=== PATIENT | female | born 1950 | race African-American/Black ===

== ENCOUNTER 2018-04-15 16:59 | Emergency (ER) | payer MEDICARE, OTHER ==
[~2018-04-15] VITALS: Ht 157.5 cm; Wt 92.0 kg
[~2018-04-15 16:59] MED LIST: ASPI81 PO; HYDR25TA PO; LOSA25TA21 PO; METF500T6 PO; NAPR375T PO; PRAV40TA4 PO
[2018-04-15] MEDS ORDERED: NORT10 PO (17:07)
[2018-04-15] MEDS ORDERED: DOXY100C PO (17:07)
[2018-04-15 17:14] LABS: GLUCOSE,POINT OF CARE 102 MG/DL (70-110)
[2018-04-15 17:32] LABS: BASOPHILS % (AUTO) 0.6 % (0.0-2.0); EOSINOPHILS % (AUTO) 1.2 % (1.0-6.0); HEMATOCRIT 37.8 % (36-46); HEMOGLOBIN 12.7 g/dL (12.0-16.0); LYMPHOCYTES # (AUTO) 2.4 K/uL (1.0-4.8); LYMPHOCYTES % (AUTO) 41.7 % (22.0-44.0); MEAN CORPUSCULAR HEMOGLOBIN 30.4 pg (26.0-34.0); MEAN CORPUSCULAR HGB CONC 33.5 G/dL (31.0-37.0); MEAN CORPUSCULAR VOLUME 91 fL (80-100); MONOCYTES # (AUTO) 0.3 K/uL (0.1-1.0); MONOCYTES % (AUTO) 5.8 % (2.0-9.0); NEUTROPHILS # (AUTO) 2.9 K/uL (1.8-7.7); NEUTROPHILS % (AUTO) 50.7 % (40.0-70.0); PLATELET COUNT (AUTO) 253 K/uL (150-450); RED BLOOD CELL COUNT(AUTO) 4.16 MIL/uL (4.00-5.20); RED CELL DISTRIBUTION WIDTH 15.6 % (11.5-14.5)
[2018-04-15 17:44] LABS: ANION GAP 5 mmol/L (8-16); CARBON DIOXIDE 29 mmol/L (22-29); CHLORIDE 100 mmol/L (98-107); CREATININE 0.76 mg/dL (0.60-1.30); GLOMERULAR FILTR. RATE CALC > 60 mL/min (>60); GLUCOSE,RANDOM 94 mg/dL (70-110); POTASSIUM 3.7 mmol/L (3.5-5.1); SODIUM SERUM 134 mmol/L (136-145); UREA NITROGEN, BLOOD 12 mg/dL (7-18)
[2018-04-15 17:51] LABS: ALANINE AMINOTRANSFERASE 23 U/L (12-78); ALBUMIN 3.3 g/dL (3.4-5.0); ALKALINE PHOSPHATASE 66 U/L (46-116); ASPARTATE AMINOTRANSFERASE 20 U/L (15-37); BILIRUBIN,TOTAL 0.2 mg/dL (0.1-1.0); LIPASE 154 U/L (73-393); TOTAL PROTEIN, SERUM 7.3 g/dL (6.4-8.2)
[2018-04-15 18:17] LABS: APPEARANCE,URINE CLEAR (CLEAR); BILIRUBIN,URINE NEGATIVE (NEGATIVE); GLUCOSE, URINE (UA) NEGATIVE (NEGATIVE); KETONES,URINE NEGATIVE (NEGATIVE); LEUKOCYTE ESTERASE ,URINE TRACE (NEGATIVE); NITRATE,URINE NEGATIVE (NEGATIVE); OCCULT BLOOD,URINE NEGATIVE (NEGATIVE); PH,URINE 6.5 (5.0-8.0); PROTEIN,URINE NEGATIVE (NEGATIVE); UROBILINOGEN,URINE 0.2 mg/dL (<=1.0)
[2018-04-15 18:36] LABS: RBC,URINE None Seen /HPF (0-2)
[2018-04-15 18:37] LABS: BACTERIA,URINE None Seen /HPF (None Seen); SQUAMOUS EPITHELIAL CELL,UR Rare /LPF (None Seen)
[2018-04-15] MEDS ORDERED: ONDANSETRON HCL 4 MG TABLET PO ONE (18:45)
[2018-04-15] MEDS ORDERED: KETOROLAC TROMETHAMINE 30 MG/ML VIAL IM ONE (18:45)
[2018-04-15] MEDS ORDERED: METF850T2 PO (18:53)
[2018-04-15 20:35] VITALS: BP 138/66
== END 2018-04-15 20:42 | disposition home or self-care (01) ==
LOC: EMS 17:00
DX: M54.42 Lumbago with sciatica, left side (principal); R10.13 Epigastric pain; R11.2 Nausea with vomiting, unspecified; E11.9 Type 2 diabetes mellitus without complications; E78.00 Pure hypercholesterolemia, unspecified
CPT/HCPCS: 36415; 73503; 80053; 81001; 82962; 83690; 84484; 85025; 93005; 96372; 99285; J1885; Q0162

== ENCOUNTER 2018-09-07 19:10 | Emergency (ER) | payer MEDICARE, OTHER ==
[~2018-09-07] VITALS: Ht 170.2 cm; Wt 94.1 kg
[~2018-09-07 19:10] MED LIST changes: -ASPI81 PO; +LOSA25TA16 PO; -LOSA25TA21 PO; +METF-445 PO; -METF500T6 PO; -NAPR375T PO; +NORT10 PO; -PRAV40TA4 PO
[2018-09-07 19:22] LABS: GLUCOSE,POINT OF CARE 147 MG/DL (70-110)
[2018-09-07] MEDS ORDERED: IBUP-2070 PO (19:27)
[2018-09-07] MEDS ORDERED: ATOR40TA28 PO (19:27)
[2018-09-07] MEDS ORDERED: ACETAMINOPHEN 500 MG TABLET PO ONE (20:15)
[2018-09-07] MEDS ORDERED: ONDANSETRON HCL 4 MG/2 ML VIAL IVP ONE (20:15)
[2018-09-07] MEDS ORDERED: SODIUM CHLORIDE 0.9% 1,000 ML IV ONE (20:15)
[2018-09-07] MEDS ORDERED: MECLIZINE HCL 25 MG TABLET PO ONE (20:15)
[2018-09-07 20:25] LABS: APPEARANCE,URINE CLEAR (CLEAR); BILIRUBIN,URINE NEGATIVE (NEGATIVE); GLUCOSE, URINE (UA) NEGATIVE (NEGATIVE); KETONES,URINE NEGATIVE (NEGATIVE); LEUKOCYTE ESTERASE ,URINE NEGATIVE (NEGATIVE); NITRATE,URINE NEGATIVE (NEGATIVE); OCCULT BLOOD,URINE NEGATIVE (NEGATIVE); PH,URINE 6.5 (5.0-8.0); PROTEIN,URINE NEGATIVE (NEGATIVE); UROBILINOGEN,URINE 0.2 mg/dL (<=1.0)
[2018-09-07 20:30] LABS: BASOPHILS % (AUTO) 0.8 % (0.0-2.0); HEMATOCRIT 37.9 % (36-46); HEMOGLOBIN 12.8 g/dL (12.0-16.0); LYMPHOCYTES # (AUTO) 2.1 K/uL (1.0-4.8); MEAN CORPUSCULAR HEMOGLOBIN 30.5 pg (26.0-34.0); MEAN CORPUSCULAR HGB CONC 33.7 G/dL (31.0-37.0); MEAN CORPUSCULAR VOLUME 91 fL (80-100); MONOCYTES # (AUTO) 0.3 K/uL (0.1-1.0); MONOCYTES % (AUTO) 6.4 % (2.0-9.0); NEUTROPHILS # (AUTO) 2.7 K/uL (1.8-7.7); NEUTROPHILS % (AUTO) 50.8 % (40.0-70.0); PLATELET COUNT (AUTO) 241 K/uL (150-450); RED BLOOD CELL COUNT(AUTO) 4.18 MIL/uL (4.00-5.20); RED CELL DISTRIBUTION WIDTH 14.7 % (11.5-14.5)
[2018-09-07 20:40] LABS: ANION GAP 7 mmol/L (8-16); CARBON DIOXIDE 29 mmol/L (22-29); CHLORIDE 102 mmol/L (98-107); CREATININE 0.72 mg/dL (0.60-1.30); GLOMERULAR FILTR. RATE CALC > 60 mL/min (>60); GLUCOSE,RANDOM 115 mg/dL (70-110); POTASSIUM 3.4 mmol/L (3.5-5.1); SODIUM SERUM 138 mmol/L (136-145); UREA NITROGEN, BLOOD 11 mg/dL (7-18)
[2018-09-07 20:46] LABS: ALANINE AMINOTRANSFERASE 25 U/L (12-78); ALKALINE PHOSPHATASE 79 U/L (46-116); ASPARTATE AMINOTRANSFERASE 16 U/L (15-37); BILIRUBIN,TOTAL 0.3 mg/dL (0.1-1.0); LIPASE 109 U/L (73-393); TOTAL PROTEIN, SERUM 7.1 g/dL (6.4-8.2)
[2018-09-07 20:59] LABS: BACTERIA,URINE None Seen /HPF (None Seen); RBC,URINE 0-2 /HPF (0-2); SQUAMOUS EPITHELIAL CELL,UR Few /LPF (None Seen); WBC,URINE 0-2 /HPF (0-5)
[2018-09-07 21:04] LABS: LACTIC ACID 1.8 mmol/L (0.4-2.0)
[2018-09-07 21:47] VITALS: BP 149/85
== END 2018-09-07 21:58 | disposition home or self-care (01) ==
LOC: EMS 19:11
DX: R42 Dizziness and giddiness (principal); K29.70 Gastritis, unspecified, without bleeding; F41.9 Anxiety disorder, unspecified; R51 Headache; E11.9 Type 2 diabetes mellitus without complications; E78.00 Pure hypercholesterolemia, unspecified; I10 Essential (primary) hypertension; M19.90 Unspecified osteoarthritis, unspecified site; Z79.84 Long term (current) use of oral hypoglycemic drugs
CPT/HCPCS: 36415; 70450; 80053; 81001; 82962; 83605; 83690; 84484; 85025; 93005; 96361; 96374; 99285; J2405; J7030

== ENCOUNTER 2019-05-09 20:00 | Emergency (ER) | payer MEDICARE, OTHER ==
[~2019-05-09] VITALS: Ht 154.9 cm; Wt 93.2 kg
[~2019-05-09 20:00] MED LIST changes: +ATOR40TA28 PO; +IBUP-2070 PO; -LOSA25TA16 PO; +LOSA25TA41 PO; -NORT10 PO
[2019-05-09] MEDS ORDERED: RANI150T7 PO (20:28)
[2019-05-09 20:35] LABS: GLUCOSE,POINT OF CARE 294 MG/DL (70-110)
[2019-05-09] MEDS ORDERED: CARISOPRODOL 350 MG TABLET PO ONE (22:45)
[2019-05-09] MEDS ORDERED: MethylPREDNISolone SOD SUCC 125 MG/2 ML VIAL IVP ONE (22:45)
[2019-05-09] MEDS ORDERED: SODIUM CHLORIDE 0.9% 1,000 ML IV ONE (22:45)
[2019-05-09] MEDS ORDERED: IPRATROPIUM BROMIDE 0.5 MG/2.5 ML NEB SOLUTION NEB ONE (22:45)
[2019-05-09] MEDS ORDERED: KETOROLAC TROMETHAMINE 30 MG/ML VIAL IVP ONE (22:45)
[2019-05-09] MEDS ORDERED: ONDANSETRON HCL 4 MG/2 ML VIAL IVP ONE (22:45)
[2019-05-09] MEDS ORDERED: ALBUTEROL SULFATE 2.5 MG/0.5 ML NEB SOLUTION NEB ONE (22:45)
[2019-05-09 23:58] VITALS: BP 141/73
== END 2019-05-10 00:45 | disposition home or self-care (01) ==
LOC: EMS 20:03
DX: G44.209 Tension-type headache, unspecified, not intractable (principal); I10 Essential (primary) hypertension; E78.00 Pure hypercholesterolemia, unspecified; E11.9 Type 2 diabetes mellitus without complications; J45.909 Unspecified asthma, uncomplicated; Z79.84 Long term (current) use of oral hypoglycemic drugs
CPT/HCPCS: 82962; 94640; 96374; 96375; 99283; J1885; J2405; J2930; J7030

== ENCOUNTER 2019-07-14 18:04 | Emergency (ER) | payer MEDICARE, OTHER ==
[~2019-07-14] VITALS: Ht 154.9 cm; Wt 93.0 kg
[~2019-07-14 18:04] MED LIST changes: +RANI150T7 PO
[2019-07-14 18:26] LABS: GLUCOSE,POINT OF CARE 103 MG/DL (70-110)
[2019-07-14 21:40] LABS: APPEARANCE,URINE CLEAR (CLEAR); BILIRUBIN,URINE NEGATIVE (NEGATIVE); GLUCOSE, URINE (UA) NEGATIVE (NEGATIVE); KETONES,URINE NEGATIVE (NEGATIVE); LEUKOCYTE ESTERASE ,URINE TRACE (NEGATIVE); NITRATE,URINE NEGATIVE (NEGATIVE); OCCULT BLOOD,URINE NEGATIVE (NEGATIVE); PROTEIN,URINE NEGATIVE (NEGATIVE); UROBILINOGEN,URINE 0.2 mg/dL (<=1.0)
[2019-07-14 21:55] LABS: BACTERIA,URINE None Seen /HPF (None Seen); RBC,URINE None Seen /HPF (0-2); WBC,URINE 0-2 /HPF (0-5)
[2019-07-14 21:56] LABS: SQUAMOUS EPITHELIAL CELL,UR Rare /LPF (None Seen)
[2019-07-14] MEDS ORDERED: AMOX TR/POT CLAV 875 MG/125 MG TABLET PO ONE (22:00)
[2019-07-14] MEDS ORDERED: HYDROCODONE/ACETAMINOPHEN 5-325 MG TABLET PO ONE (22:00)
[2019-07-14 22:28] VITALS: BP 148/88
== END 2019-07-14 22:29 | disposition home or self-care (01) ==
LOC: EMS 18:07
DX: J02.9 Acute pharyngitis, unspecified (principal); R35.0 Frequency of micturition; R30.0 Dysuria; R10.30 Lower abdominal pain, unspecified; R30.9 Painful micturition, unspecified; E78.00 Pure hypercholesterolemia, unspecified; I10 Essential (primary) hypertension; J45.909 Unspecified asthma, uncomplicated; M19.90 Unspecified osteoarthritis, unspecified site; Z79.899 Other long term (current) drug therapy
CPT/HCPCS: 87430

== ENCOUNTER 2022-04-10 18:18 | Emergency (ER) | payer MEDICARE, OTHER ==
[~2022-04-10] VITALS: Ht 160 cm; Wt 85.0 kg
[~2022-04-10 18:18] MED LIST changes: +HYDR-4870 PO; -HYDR25TA PO; +LOSA-381 PO; -LOSA25TA41 PO
[2022-04-10 18:57] LABS: BASOPHILS % (AUTO) 1.1 % (0.0-2.0); EOSINOPHILS % (AUTO) 1.2 % (1.0-6.0); HEMATOCRIT 36.3 % (36-46); HEMOGLOBIN 12.2 g/dL (12.0-16.0); LYMPHOCYTES # (AUTO) 1.9 K/uL (1.0-4.8); LYMPHOCYTES % (AUTO) 33.2 % (22.0-44.0); MEAN CORPUSCULAR HEMOGLOBIN 29.7 pg (26.0-34.0); MEAN CORPUSCULAR HGB CONC 33.5 G/dL (31.0-37.0); MEAN CORPUSCULAR VOLUME 89 fL (80-100); MONOCYTES # (AUTO) 0.4 K/uL (0.1-1.0); MONOCYTES % (AUTO) 6.5 % (2.0-9.0); NEUTROPHILS # (AUTO) 3.4 K/uL (1.8-7.7); PLATELET COUNT (AUTO) 314 K/uL (150-450); RED CELL DISTRIBUTION WIDTH 15.3 % (11.5-14.5)
[2022-04-10 19:09] LABS: ANION GAP 10 mmol/L (8-16); CALCIUM, TOTAL 9.5 mg/dL (8.8-10.5); CARBON DIOXIDE 27 mmol/L (22-29); CHLORIDE 101 mmol/L (98-107); GLUCOSE,RANDOM 141 mg/dL (70-110); POTASSIUM 3.3 mmol/L (3.5-5.1); SODIUM SERUM 138 mmol/L (136-145); UREA NITROGEN, BLOOD 15 mg/dL (7-18)
[2022-04-10 19:14] LABS: GLOMERULAR FILTR. RATE CALC > 60 mL/min (>60)
[2022-04-10 19:16] LABS: B-TYPE NATRIURETIC PEPTIDE 33 pg/mL (0-100)
[2022-04-10 19:20] LABS: ALANINE AMINOTRANSFERASE 10 U/L (12-78); ALBUMIN 3.4 g/dL (3.4-5.0); ALKALINE PHOSPHATASE 85 U/L (46-116); ASPARTATE AMINOTRANSFERASE 13 U/L (15-37); BILIRUBIN,TOTAL 0.2 mg/dL (0.1-1.0); TOTAL PROTEIN, SERUM 7.5 g/dL (6.4-8.2)
[2022-04-10] MEDS ORDERED: PB/HYOSCY/ATR/SCOP/LIDO/MAALOX 55 ML BOTTLE PO ONE (19:30)
[2022-04-10 20:26] LABS: COVID AG,FIA SOURCE NASAL SWAB
[2022-04-10] MEDS ORDERED: POTASSIUM CHLORIDE 20 MEQ ER TABLET PO ONE (20:30)
[2022-04-10] MEDS ORDERED: PANT-31 PO (22:01)
[2022-04-10] MEDS ORDERED: ACETAMINOPHEN 500 MG TABLET PO ONE (22:15)
[2022-04-10 22:38] VITALS: BP 141/70
== END 2022-04-10 22:40 | disposition home or self-care (01) ==
LOC: EMS 18:20
DX: K21.9 Gastro-esophageal reflux disease without esophagitis (principal); M19.90 Unspecified osteoarthritis, unspecified site; J45.909 Unspecified asthma, uncomplicated; E11.9 Type 2 diabetes mellitus without complications; E78.00 Pure hypercholesterolemia, unspecified; I10 Essential (primary) hypertension; Z86.69 Personal history of other diseases of the nervous system and sense organs; Z87.19 Personal history of other diseases of the digestive system; Z20.822 Contact with and (suspected) exposure to COVID-19
CPT/HCPCS: 71045; 80053; 82962; 83880; 84484; 85025; 93005; 99285; 36415-L1; 36415-TC

== ENCOUNTER 2022-12-22 15:09 | Inpatient (IN) | payer MEDICARE, OTHER ==
[~2022-12-22] VITALS: Ht 157.5 cm; Wt 89.0 kg
[~2022-12-22 15:09] MED LIST changes: -HYDR-4870 PO; +HYDR25TA2 PO; +IBUP-1492 PO; -IBUP-2070 PO; +PANT-31 PO
[2022-12-22] MEDS ORDERED: NITROGLYCERIN 0.4 MG SUBLINGUAL TABLET #25 SL ONE (17:00)
[2022-12-22] MEDS ORDERED: ONDANSETRON HCL 4 MG/2 ML VIAL IVP ONE (17:00)
[2022-12-22] MEDS ORDERED: ASPIRIN 325 MG TABLET PO ONE (17:00)
[2022-12-22 17:28] LABS: BASOPHILS % (AUTO) 1.2 % (0.0-2.0); EOSINOPHILS % (AUTO) 2.4 % (1.0-6.0); HEMATOCRIT 36.9 % (36-46); HEMOGLOBIN 11.9 g/dL (12.0-16.0); LYMPHOCYTES # (AUTO) 2.1 K/uL (1.0-4.8); MEAN CORPUSCULAR HEMOGLOBIN 29.4 pg (26.0-34.0); MEAN CORPUSCULAR HGB CONC 32.3 G/dL (31.0-37.0); MEAN CORPUSCULAR VOLUME 91 fL (80-100); MONOCYTES # (AUTO) 0.4 K/uL (0.1-1.0); MONOCYTES % (AUTO) 6.8 % (2.0-9.0); NEUTROPHILS # (AUTO) 3.4 K/uL (1.8-7.7); NEUTROPHILS % (AUTO) 55.6 % (40.0-70.0); PLATELET COUNT (AUTO) 254 K/uL (150-450); RED BLOOD CELL COUNT(AUTO) 4.06 MIL/uL (4.00-5.20)
[2022-12-22 17:31] LABS: GLUCOMETER DEV NAME(LOC) ERT.5; GLUCOSE,POINT OF CARE 135 MG/DL (70-110)
[2022-12-22 17:38] LABS: ANION GAP 10 mmol/L (8-16); CALCIUM, TOTAL 9.1 mg/dL (8.8-10.5); CARBON DIOXIDE 29 mmol/L (22-29); CHLORIDE 104 mmol/L (98-107); CREATININE 0.91 mg/dL (0.60-1.30); GLOMERULAR FILTR. RATE CALC > 60 mL/min (>60); GLUCOSE,RANDOM 95 mg/dL (70-110); SODIUM SERUM 143 mmol/L (136-145); UREA NITROGEN, BLOOD 22 mg/dL (7-18)
[2022-12-22 17:48] LABS: ALBUMIN 3.2 g/dL (3.4-5.0); ALKALINE PHOSPHATASE 79 U/L (46-116); ASPARTATE AMINOTRANSFERASE 16 U/L (15-37); BILIRUBIN,TOTAL 0.1 mg/dL (0.1-1.0); LIPASE 126 U/L (73-393); TOTAL PROTEIN, SERUM 7.4 g/dL (6.4-8.2)
[2022-12-22 17:53] LABS: B-TYPE NATRIURETIC PEPTIDE 86 pg/mL (0-100)
[2022-12-22 17:59] LABS: ALANINE AMINOTRANSFERASE 18 U/L (12-78); LACTIC ACID 2.4 mmol/L (0.4-2.0)
[2022-12-22 18:23] LABS: APPEARANCE,URINE CLEAR (CLEAR); BILIRUBIN,URINE NEGATIVE (NEGATIVE); GLUCOSE, URINE (UA) NEGATIVE (NEGATIVE); KETONES,URINE NEGATIVE (NEGATIVE); LEUKOCYTE ESTERASE ,URINE MODERATE (NEGATIVE); NITRATE,URINE NEGATIVE (NEGATIVE); OCCULT BLOOD,URINE NEGATIVE (NEGATIVE); PROTEIN,URINE NEGATIVE (NEGATIVE); SPECIFIC GRAVITIY, URINE 1.007 (1.003-1.030); UROBILINOGEN,URINE <=1.0 mg/dL (<=1.0)
[2022-12-22 18:28] LABS: COVID AG,FIA SOURCE NASOPHARYNGEAL
[2022-12-22 18:45] LABS: RBC,URINE None Seen /HPF (0-2)
[2022-12-22 18:46] LABS: BACTERIA,URINE None Seen /HPF (None Seen)
[2022-12-22 18:54] LABS: INFLUENZA TYPE A NEGATIVE FOR TYPE A (NEGATIVE); INFLUENZA TYPE B NEGATIVE FOR TYPE B (NEGATIVE)
[2022-12-22] MEDS ORDERED: NITROGLYCERIN 2% (1 GM=INCH) OINTMENT PACKET TP ONE (19:00)
[2022-12-22] MEDS ORDERED: MORPHINE SULFATE 4 MG/ML SYRINGE IVP ONE (19:00)
[2022-12-22] MEDS ORDERED: ACETAMINOPHEN 500 MG TABLET PO ONE (19:00)
[2022-12-22] MEDS ORDERED: ACETAMINOPHEN 325 MG TABLET PO PRN (19:15)
[2022-12-22] MEDS ORDERED: MORPHINE SULFATE 2 MG/ML SYRINGE IVP PRN (19:15)
[2022-12-22] MEDS ORDERED: ONDANSETRON HCL 4 MG/2 ML VIAL IVP PRN (19:15)
[2022-12-22] MEDS ORDERED: IOHEXOL 350 MG/ML 100 ML VIAL ONE (19:17)
[2022-12-22] MEDS ORDERED: SODIUM CHLORIDE 0.9% 100 ML ONE (19:17)
[2022-12-22] MEDS: DOCUSATE SODIUM 100 MG CAPSULE PO SCH (21:33)
[2022-12-22] MEDS ORDERED: DEXTROSE 50%-WATER 25 GM/50 ML SYRINGE IVP PRN (22:30)
[2022-12-23] MEDS: CefTRIAXone 1 GM/DEXTROSE 50 ML IV SCH (00:09)
[2022-12-23] MEDS: INSULIN GLARGINE,HUM.REC.ANLOG 100 UNITS/ML SQ SCH ×2 (00:09→20:47)
[2022-12-23] MEDS: METOPROLOL TARTRATE 25 MG TABLET PO SCH ×3 (00:09→20:44)
[2022-12-23] MEDS: ATORVASTATIN CALCIUM 40 MG TABLET PO SCH ×2 (00:09→20:45)
[2022-12-23] MEDS: AZITHROMYCIN 500 MG/NS 250 ML IV SCH (00:10)
[2022-12-23] MEDS ORDERED: SODIUM CHLORIDE 0.9% 100 ML ONE (02:26)
[2022-12-23] MEDS ORDERED: IOHEXOL 350 MG/ML 100 ML VIAL ONE ×2 (02:26→02:27)
[2022-12-23 02:59] LABS: CHOL/HDL RATIO 4.3 (3.9-5.7)
[2022-12-23 03:03] LABS: HEMOGLOBIN A1C 7.5 % (3.8-5.6)
[2022-12-23 06:02] LABS: HEMATOCRIT 37.5 % (36-46); HEMOGLOBIN 12.6 g/dL (12.0-16.0); RED BLOOD CELL COUNT(AUTO) 4.13 MIL/uL (4.00-5.20)
[2022-12-23 06:03] LABS: BASOPHILS % (AUTO) 1.2 % (0.0-2.0); EOSINOPHILS % (AUTO) 3.1 % (1.0-6.0); LYMPHOCYTES # (AUTO) 2.1 K/uL (1.0-4.8); MEAN CORPUSCULAR HEMOGLOBIN 30.6 pg (26.0-34.0); MEAN CORPUSCULAR HGB CONC 33.7 G/dL (31.0-37.0); MEAN CORPUSCULAR VOLUME 91 fL (80-100); MONOCYTES # (AUTO) 0.4 K/uL (0.1-1.0); MONOCYTES % (AUTO) 8.2 % (2.0-9.0); NEUTROPHILS # (AUTO) 2.6 K/uL (1.8-7.7); NEUTROPHILS % (AUTO) 48.5 % (40.0-70.0); PLATELET COUNT (AUTO) 262 K/uL (150-450)
[2022-12-23 06:10] LABS: ANION GAP 9 mmol/L (8-16); CALCIUM, TOTAL 8.9 mg/dL (8.8-10.5); CARBON DIOXIDE 28 mmol/L (22-29); CHLORIDE 102 mmol/L (98-107); CREATININE 0.98 mg/dL (0.60-1.30); GLOMERULAR FILTR. RATE CALC > 60 mL/min (>60); GLUCOSE,RANDOM 133 mg/dL (70-110); POTASSIUM 3.7 mmol/L (3.5-5.1); SODIUM SERUM 139 mmol/L (136-145); UREA NITROGEN, BLOOD 18 mg/dL (7-18)
[2022-12-23 06:31] LABS: PLATELET MORPHOLOGY COMMENT GIANT PLTS PRESENT
[2022-12-23] MEDS: ASPIRIN 81 MG CHEWABLE TABLET PO SCH (08:28)
[2022-12-23] MEDS: DOCUSATE SODIUM 100 MG CAPSULE PO SCH ×2 (08:28→20:44)
[2022-12-23] MEDS: INSULIN LISPRO 100 UNITS/ML SQ PRN ×3 (09:08→20:47)
[2022-12-23 09:17] LABS: GLUCOSE,POINT OF CARE 173 MG/DL (70-110)
[2022-12-23 12:00] VITALS: BP 152/76
[2022-12-23] MEDS ORDERED: PNEUMOCOCCAL VACCINE POLYVALENT 0.5 ML VIAL [PPSV23] IM. ONE (12:45)
[2022-12-23] MEDS ORDERED: INFLUENZA VIRUS VACCINE QVS 2022-23 (6MO+)/PF 60 MCG/0.5 ML SYRINGE IM. ONE (12:45)
[2022-12-23 16:00] VITALS: BP 154/66
[2022-12-23 18:57] LABS: GLUCOMETER DEV NAME(LOC) 5N.1C; GLUCOSE,POINT OF CARE 102 MG/DL (70-110)
[2022-12-23 20:00] VITALS: BP 152/71
[2022-12-23 23:06] LABS: GLUCOMETER DEV NAME(LOC) 5S.1B; GLUCOSE,POINT OF CARE 187 MG/DL (70-110)
[2022-12-23] MEDS ORDERED: SODIUM CHLORIDE 0.9% 500 ML IV ONE (23:47)
[2022-12-24] VITALS (8 sets, daily range): BP systolic 110–147; BP diastolic 46–80
[2022-12-24] MEDS: CefTRIAXone 1 GM/DEXTROSE 50 ML IV SCH ×2 (00:09→22:42)
[2022-12-24] MEDS: AZITHROMYCIN 500 MG/NS 250 ML IV SCH ×2 (00:44→23:41)
[2022-12-24 05:31] LABS: GLUCOMETER DEV NAME(LOC) 5S.2B; GLUCOSE,POINT OF CARE 223 MG/DL (70-110)
[2022-12-24 07:39] LABS: EOSINOPHILS % (AUTO) 5.6 % (1.0-6.0); HEMATOCRIT 36.2 % (36-46); HEMOGLOBIN 12.1 g/dL (12.0-16.0); MEAN CORPUSCULAR HEMOGLOBIN 30.6 pg (26.0-34.0); MEAN CORPUSCULAR HGB CONC 33.3 G/dL (31.0-37.0); MEAN CORPUSCULAR VOLUME 92 fL (80-100); MONOCYTES # (AUTO) 0.4 K/uL (0.1-1.0); MONOCYTES % (AUTO) 7.9 % (2.0-9.0); NEUTROPHILS # (AUTO) 2.2 K/uL (1.8-7.7); NEUTROPHILS % (AUTO) 44.5 % (40.0-70.0); PLATELET COUNT (AUTO) 221 K/uL (150-450); RED BLOOD CELL COUNT(AUTO) 3.94 MIL/uL (4.00-5.20); RED CELL DISTRIBUTION WIDTH 14.8 % (11.5-14.5)
[2022-12-24 07:54] LABS: ANION GAP 8 mmol/L (8-16); CALCIUM, TOTAL 8.8 mg/dL (8.8-10.5); CARBON DIOXIDE 27 mmol/L (22-29); CHLORIDE 106 mmol/L (98-107); CREATININE 1.02 mg/dL (0.60-1.30); GLOMERULAR FILTR. RATE CALC > 60 mL/min (>60); GLUCOSE,RANDOM 104 mg/dL (70-110); POTASSIUM 4.2 mmol/L (3.5-5.1); SODIUM SERUM 141 mmol/L (136-145); UREA NITROGEN, BLOOD 18 mg/dL (7-18)
[2022-12-24] MEDS: ASPIRIN 81 MG CHEWABLE TABLET PO SCH (08:00)
[2022-12-24 08:01] LABS: CHOL/HDL RATIO 3.6 (3.9-5.7)
[2022-12-24] MEDS: METOPROLOL TARTRATE 25 MG TABLET PO SCH ×2 (08:46→21:15)
[2022-12-24] MEDS: DOCUSATE SODIUM 100 MG CAPSULE PO SCH ×2 (08:46→21:15)
[2022-12-24 08:51] LABS: GLUCOMETER DEV NAME(LOC) 5S.2B; GLUCOSE,POINT OF CARE 97 MG/DL (70-110)
[2022-12-24] MEDS ORDERED: REGADENOSON 0.4 MG/5 ML PF SYRINGE IVP ONE (11:30)
[2022-12-24] MEDS ORDERED: SESTAMIBI TC99M/UD ISOTOPE 1 EA INJ INJ ONE ×2 (13:00→15:10)
[2022-12-24] MEDS ORDERED: AMINOPHYLLINE 25 MG/ML 10 ML VIAL IVP PRN (13:30)
[2022-12-24] MEDS: HEPARIN SODIUM,PORCINE 5,000 UNITS/ML VIAL SQ SCH ×2 (17:50→23:41)
[2022-12-24] MEDS: PANTOPRAZOLE SODIUM 40 MG DR TABLET PO SCH (17:50)
[2022-12-24] MEDS: INSULIN LISPRO 100 UNITS/ML SQ PRN ×2 (18:27→21:25)
[2022-12-24] MEDS ORDERED: ATORVASTATIN CALCIUM 40 MG TABLET PO SCH (21:00)
[2022-12-24] MEDS: INSULIN GLARGINE,HUM.REC.ANLOG 100 UNITS/ML SQ SCH (21:25)
[2022-12-25 00:18] VITALS: BP 110/55
[2022-12-25 03:21] LABS: GLUCOMETER DEV NAME(LOC) 5S.2B; GLUCOSE,POINT OF CARE 224 MG/DL (70-110)
[2022-12-25 03:21] LABS: GLUCOMETER DEV NAME(LOC) 5S.2B; GLUCOSE,POINT OF CARE 251 MG/DL (70-110)
[2022-12-25 03:21] LABS: GLUCOMETER DEV NAME(LOC) 5S.2B; GLUCOSE,POINT OF CARE 192 MG/DL (70-110)
[2022-12-25 03:22] LABS: GLUCOMETER DEV NAME(LOC) 5S.2B; GLUCOSE,POINT OF CARE 215 MG/DL (70-110)
[2022-12-25 03:22] LABS: GLUCOMETER DEV NAME(LOC) 5S.2B; GLUCOSE,POINT OF CARE 44 MG/DL (70-110)
[2022-12-25 06:01] VITALS: BP 123/63
[2022-12-25 06:56] LABS: BASOPHILS % (AUTO) 0.9 % (0.0-2.0); EOSINOPHILS % (AUTO) 4.7 % (1.0-6.0); HEMATOCRIT 34.8 % (36-46); HEMOGLOBIN 11.7 g/dL (12.0-16.0); LYMPHOCYTES # (AUTO) 1.7 K/uL (1.0-4.8); LYMPHOCYTES % (AUTO) 42.1 % (22.0-44.0); MEAN CORPUSCULAR HEMOGLOBIN 30.5 pg (26.0-34.0); MEAN CORPUSCULAR HGB CONC 33.6 G/dL (31.0-37.0); MEAN CORPUSCULAR VOLUME 91 fL (80-100); MONOCYTES # (AUTO) 0.3 K/uL (0.1-1.0); MONOCYTES % (AUTO) 7.1 % (2.0-9.0); NEUTROPHILS # (AUTO) 1.9 K/uL (1.8-7.7); NEUTROPHILS % (AUTO) 45.2 % (40.0-70.0); PLATELET COUNT (AUTO) 220 K/uL (150-450); RED BLOOD CELL COUNT(AUTO) 3.83 MIL/uL (4.00-5.20); RED CELL DISTRIBUTION WIDTH 15.1 % (11.5-14.5)
[2022-12-25 07:07] LABS: PLATELET MORPHOLOGY COMMENT GIANT PLTS PRESENT
[2022-12-25 07:11] LABS: ANION GAP 6 mmol/L (8-16); CALCIUM, TOTAL 8.8 mg/dL (8.8-10.5); CARBON DIOXIDE 28 mmol/L (22-29); CHLORIDE 104 mmol/L (98-107); CREATININE 0.89 mg/dL (0.60-1.30); GLOMERULAR FILTR. RATE CALC > 60 mL/min (>60); GLUCOSE,RANDOM 162 mg/dL (70-110); POTASSIUM 3.8 mmol/L (3.5-5.1); SODIUM SERUM 138 mmol/L (136-145); UREA NITROGEN, BLOOD 14 mg/dL (7-18)
[2022-12-25 07:58] VITALS: BP 146/76
[2022-12-25] MEDS: ASPIRIN 81 MG CHEWABLE TABLET PO SCH (08:00)
[2022-12-25] MEDS: METOPROLOL TARTRATE 25 MG TABLET PO SCH (10:27)
[2022-12-25] MEDS: DOCUSATE SODIUM 100 MG CAPSULE PO SCH (10:27)
[2022-12-25] MEDS: PANTOPRAZOLE SODIUM 40 MG DR TABLET PO SCH (10:28)
[2022-12-25] MEDS: HEPARIN SODIUM,PORCINE 5,000 UNITS/ML VIAL SQ SCH (10:28)
[2022-12-25] MEDS ORDERED: PANT-31 PO (10:50)
[2022-12-25] MEDS ORDERED: METO25 PO (10:50)
[2022-12-25] MEDS ORDERED: ATOR40TA71 PO (10:50)
[2022-12-25] MEDS ORDERED: ASPI81 PO (10:50)
[2022-12-25] MEDS ORDERED: LEVO-72 PO (10:52)
[2022-12-25 11:57] LABS: GLUCOMETER DEV NAME(LOC) 5S.2B; GLUCOSE,POINT OF CARE 214 MG/DL (70-110)
[2022-12-25 12:10] VITALS: BP 122/77
== END 2022-12-25 14:25 | disposition home or self-care (01) | DRG 391 ==
LOC: EMS 15:13 → 5S 12-23 10:40
PROVIDERS: ADMIT Internal Medicine; ATTEND Internal Medicine
DX: K21.9 Gastro-esophageal reflux disease without esophagitis (principal); J18.9 Pneumonia, unspecified organism; E87.20 Acidosis, unspecified; I20.0 Unstable angina; J45.909 Unspecified asthma, uncomplicated; I10 Essential (primary) hypertension; E78.00 Pure hypercholesterolemia, unspecified; E11.9 Type 2 diabetes mellitus without complications; Z20.822 Contact with and (suspected) exposure to COVID-19; E66.01 Morbid (severe) obesity due to excess calories; Z79.84 Long term (current) use of oral hypoglycemic drugs; Z79.899 Other long term (current) drug therapy; Z68.35 Body mass index [BMI] 35.0-35.9, adult
CPT/HCPCS: 70450; 70496; 70498; 70551; 71045; 71275; 78452; 80048; 80053; 80061; 81001; 82962; 83036; 83605; 83690; 83735; 83880; 84484; 85025; 85379; 87086; 87186; 87804; 93005; 93306; 99291; A9500; J0456; J0696; J1644; J1815; J2270; J2405; J7040; J7050; Q9967; 36415-L1; 36415-TC; U0003

== ENCOUNTER 2023-10-01 16:10 | Emergency (ER) | payer MEDICARE, OTHER ==
[~2023-10-01] VITALS: Ht 157.5 cm; Wt 86.4 kg
[~2023-10-01 16:10] MED LIST changes: +ASPI81 PO; -ATOR40TA28 PO; +ATOR40TA71 PO; -HYDR25TA2 PO; -IBUP-1492 PO; +LEVO-72 PO; -LOSA-381 PO; +METO25 PO; -RANI150T7 PO
[2023-10-01 16:26] VITALS: TEMP 98.4
[2023-10-01] MEDS ORDERED: LINA5TAB PO (20:37)
[2023-10-01] MEDS ORDERED: METF-446 PO (20:37)
[2023-10-01] MEDS ORDERED: PANT20TA18 PO (20:37)
[2023-10-01] MEDS ORDERED: ASPI-1444 PO (20:37)
[2023-10-01] MEDS ORDERED: LOSA1TAB42 PO (20:37)
[2023-10-01] MEDS ORDERED: ACETAMINOPHEN/CODEINE 300-30 MG TABLET PO ONE (20:45)
[2023-10-01] MEDS ORDERED: KETOROLAC TROMETHAMINE 60 MG/2 ML VIAL IM ONE (20:45)
[2023-10-01 20:59] LABS: BASOPHILS % (AUTO) 1.1 % (0.0-2.0); EOSINOPHILS % (AUTO) 2.2 % (1.0-6.0); HEMOGLOBIN 11.8 g/dL (12.0-16.0); LYMPHOCYTES # (AUTO) 1.6 K/uL (1.0-4.8); LYMPHOCYTES % (AUTO) 22.5 % (22.0-44.0); MEAN CORPUSCULAR HEMOGLOBIN 30.1 pg (26.0-34.0); MEAN CORPUSCULAR HGB CONC 33.6 G/dL (31.0-37.0); MEAN CORPUSCULAR VOLUME 90 fL (80-100); MONOCYTES # (AUTO) 0.5 K/uL (0.1-1.0); MONOCYTES % (AUTO) 7.8 % (2.0-9.0); NEUTROPHILS # (AUTO) 4.7 K/uL (1.8-7.7); NEUTROPHILS % (AUTO) 66.4 % (40.0-70.0); PLATELET COUNT (AUTO) 273 K/uL (150-450); RED BLOOD CELL COUNT(AUTO) 3.91 MIL/uL (4.00-5.20); RED CELL DISTRIBUTION WIDTH 15.3 % (11.5-14.5); WHITE BLOOD COUNT (AUTO) 7.1 K/uL (4.5-11.0)
[2023-10-01 21:08] LABS: ANION GAP 9 mmol/L (8-16); CALCIUM, TOTAL 9.3 mg/dL (8.8-10.5); CARBON DIOXIDE 28 mmol/L (22-29); CHLORIDE 101 mmol/L (98-107); CREATININE 0.85 mg/dL (0.60-1.30); GLOMERULAR FILTR. RATE CALC > 60 mL/min (>60); GLUCOSE,RANDOM 108 mg/dL (70-110); POTASSIUM 3.1 mmol/L (3.5-5.1); SODIUM SERUM 138 mmol/L (136-145); UREA NITROGEN, BLOOD 14 mg/dL (7-18)
[2023-10-01 21:14] LABS: ALANINE AMINOTRANSFERASE 23 U/L (12-78); ALBUMIN 3.1 g/dL (3.4-5.0); ALKALINE PHOSPHATASE 85 U/L (46-116); ASPARTATE AMINOTRANSFERASE 18 U/L (15-37); BILIRUBIN,TOTAL 0.3 mg/dL (0.1-1.0); TOTAL PROTEIN, SERUM 7.9 g/dL (6.4-8.2)
[2023-10-01 21:30] VITALS: BP 125/83; PULSE 79; RESP 16
[2023-10-01] MEDS ORDERED: POTASSIUM CHLORIDE 10% 40 MEQ/30 ML LIQUID UDCUP PO ONE (21:30)
[2023-10-01] MEDS ORDERED: ACET-2080 PO ×2 (22:14→22:38)
[2023-10-01] MEDS ORDERED: IBUP-1554 PO ×2 (22:14→22:38)
== END 2023-10-01 22:48 | disposition home or self-care (01) ==
LOC: EMS 16:33
DX: M48.32 Traumatic spondylopathy, cervical region (principal); M54.2 Cervicalgia; R51.9 Headache, unspecified; E87.6 Hypokalemia; E11.65 Type 2 diabetes mellitus with hyperglycemia; J45.909 Unspecified asthma, uncomplicated; E78.00 Pure hypercholesterolemia, unspecified; I10 Essential (primary) hypertension
CPT/HCPCS: 99285; 70450; 80053; 82962; 85025; 36415; 72125; 96372; J1885

== ENCOUNTER 2024-06-18 21:23 | Emergency (ER) | payer MEDICARE, OTHER ==
[~2024-06-18] VITALS: Ht 157.5 cm; Wt 100.0 kg
[~2024-06-18 21:23] MED LIST changes: +ACET-2080 PO; +ASPI-1444 PO; -ASPI81 PO; +IBUP-1554 PO; -LEVO-72 PO; +LINA5TAB PO; +LOSA1TAB42 PO; -METF-445 PO; +METF-446 PO; -METO25 PO; -PANT-31 PO; +PANT20TA18 PO
[2024-06-18 22:32] VITALS: TEMP 97.4
[2024-06-19] MEDS: ACETAMINOPHEN 325 MG TABLET PO ONE (02:01)
[2024-06-19 02:14] LABS: COVID AG,FIA SOURCE NASAL SWAB
[2024-06-19 02:17] LABS: BASOPHILS % (AUTO) 0.5 % (0.0-2.0); EOSINOPHILS % (AUTO) 1.8 % (1.0-6.0); HEMATOCRIT 34.5 % (36-46); HEMOGLOBIN 11.5 g/dL (12.0-16.0); LYMPHOCYTES # (AUTO) 2.3 K/uL (1.0-4.8); LYMPHOCYTES % (AUTO) 39.9 % (22.0-44.0); MEAN CORPUSCULAR HGB CONC 33.3 G/dL (31.0-37.0); MEAN CORPUSCULAR VOLUME 90 fL (80-100); MONOCYTES # (AUTO) 0.4 K/uL (0.1-1.0); NEUTROPHILS # (AUTO) 2.9 K/uL (1.8-7.7); NEUTROPHILS % (AUTO) 50.8 % (40.0-70.0); PLATELET COUNT (AUTO) 236 K/uL (150-450); RED BLOOD CELL COUNT(AUTO) 3.83 MIL/uL (4.00-5.20); RED CELL DISTRIBUTION WIDTH 15.2 % (11.5-14.5); WHITE BLOOD COUNT (AUTO) 5.7 K/uL (4.5-11.0)
[2024-06-19 02:32] LABS: ANION GAP 10 mmol/L (8-16); CALCIUM, TOTAL 8.5 mg/dL (8.8-10.5); CARBON DIOXIDE 27 mmol/L (22-29); CHLORIDE 104 mmol/L (98-107); CREATININE 0.94 mg/dL (0.60-1.30); GLOMERULAR FILTR. RATE CALC > 60 mL/min (>60); GLUCOSE,RANDOM 95 mg/dL (70-110); POTASSIUM 3.4 mmol/L (3.5-5.1); SODIUM SERUM 141 mmol/L (136-145); UREA NITROGEN, BLOOD 15 mg/dL (7-18)
[2024-06-19 02:35] LABS: INFLUENZA TYPE A NEGATIVE FOR TYPE A (NEGATIVE); INFLUENZA TYPE B NEGATIVE FOR TYPE B (NEGATIVE)
[2024-06-19 02:37] LABS: SARS-COV2 (COVID) ANTIGEN,FIA Negative (Negative)
[2024-06-19] MEDS ORDERED: MOXI3DRO25 OD (04:14)
[2024-06-19] MEDS ORDERED: BENZ-227 PO (04:16)
[2024-06-19 04:31] VITALS: BP 141/87; PULSE 75; RESP 16; O2SAT 99
== END 2024-06-19 04:32 | disposition home or self-care (01) ==
LOC: EMS 21:23
DX: J06.9 Acute upper respiratory infection, unspecified (principal); M19.90 Unspecified osteoarthritis, unspecified site; J45.909 Unspecified asthma, uncomplicated; E11.9 Type 2 diabetes mellitus without complications; E78.00 Pure hypercholesterolemia, unspecified; I10 Essential (primary) hypertension; Z20.822 Contact with and (suspected) exposure to COVID-19
CPT/HCPCS: 70450; 71045; 80048; 85025; 87804; 99284; 36415-L1; 36415-TC

== ENCOUNTER 2024-08-06 17:56 | Emergency (ER) | payer MEDICARE, OTHER ==
[~2024-08-06] VITALS: Ht 157.5 cm; Wt 86.0 kg
[~2024-08-06 17:56] MED LIST changes: +BENZ-227 PO; +MOXI3DRO25 OD
[2024-08-06 18:30] VITALS: TEMP 98.9
[2024-08-06 18:36] LABS: COVID AG,FIA SOURCE NASAL SWAB
[2024-08-06 18:56] LABS: SARS-COV2 (COVID) ANTIGEN,FIA Negative (Negative)
[2024-08-06 18:56] LABS: BASOPHILS % (AUTO) 0.4 % (0.0-2.0); EOSINOPHILS % (AUTO) 0.4 % (1.0-6.0); HEMATOCRIT 37.5 % (36-46); HEMOGLOBIN 12.2 g/dL (12.0-16.0); LYMPHOCYTES # (AUTO) 0.8 K/uL (1.0-4.8); LYMPHOCYTES % (AUTO) 14.1 % (22.0-44.0); MEAN CORPUSCULAR HEMOGLOBIN 29.5 pg (26.0-34.0); MEAN CORPUSCULAR HGB CONC 32.5 G/dL (31.0-37.0); MEAN CORPUSCULAR VOLUME 91 fL (80-100); MONOCYTES # (AUTO) 0.2 K/uL (0.1-1.0); MONOCYTES % (AUTO) 4.3 % (2.0-9.0); NEUTROPHILS # (AUTO) 4.4 K/uL (1.8-7.7); NEUTROPHILS % (AUTO) 80.8 % (40.0-70.0); PLATELET COUNT (AUTO) 281 K/uL (150-450); RED BLOOD CELL COUNT(AUTO) 4.13 MIL/uL (4.00-5.20); RED CELL DISTRIBUTION WIDTH 16.4 % (11.5-14.5); WHITE BLOOD COUNT (AUTO) 5.5 K/uL (4.5-11.0)
[2024-08-06 18:57] LABS: INFLUENZA TYPE A NEGATIVE FOR TYPE A (NEGATIVE); INFLUENZA TYPE B NEGATIVE FOR TYPE B (NEGATIVE)
[2024-08-06 19:01] LABS: ANION GAP 5 mmol/L (8-16); CALCIUM, TOTAL 8.8 mg/dL (8.8-10.5); CARBON DIOXIDE 29 mmol/L (22-29); CHLORIDE 100 mmol/L (98-107); CREATININE 0.94 mg/dL (0.60-1.30); GLOMERULAR FILTR. RATE CALC > 60 mL/min (>60); GLUCOSE,RANDOM 147 mg/dL (70-110); POTASSIUM 3.5 mmol/L (3.5-5.1); SODIUM SERUM 134 mmol/L (136-145); UREA NITROGEN, BLOOD 19 mg/dL (7-18)
[2024-08-06 19:07] LABS: ALANINE AMINOTRANSFERASE 26 U/L (12-78); ALKALINE PHOSPHATASE 83 U/L (46-116); ASPARTATE AMINOTRANSFERASE 27 U/L (15-37); BILIRUBIN,TOTAL 0.4 mg/dL (0.1-1.0); LIPASE 34 U/L (16-77); TOTAL PROTEIN, SERUM 7.3 g/dL (6.4-8.2)
[2024-08-06 19:10] LABS: TROPONIN I-HIGH SENSITIVITY 7 ng/L (<51)
[2024-08-06] MEDS ORDERED: IOHEXOL 350 MG/ML 100 ML VIAL ONE (19:21)
[2024-08-06] MEDS ORDERED: SODIUM CHLORIDE 0.9% 100 ML ONE (19:21)
[2024-08-06] MEDS: ONDANSETRON HCL 4 MG/2 ML VIAL IVP ONE (19:48)
[2024-08-06] MEDS: FAMOTIDINE 20 MG/2 ML VIAL IVP ONE (19:48)
[2024-08-06] MEDS: SODIUM CHLORIDE 0.9% 1,000 ML IV ONE (19:48)
[2024-08-06] MEDS: ACETAMINOPHEN 500 MG TABLET PO ONE (19:48)
[2024-08-06 21:21] LABS: APPEARANCE,URINE CLEAR (CLEAR); BILIRUBIN,URINE NEGATIVE (NEGATIVE); COLOR,URINE COLORLESS (YELLOW); GLUCOSE, URINE (UA) NEGATIVE (NEGATIVE); KETONES,URINE NEGATIVE (NEGATIVE); LEUKOCYTE ESTERASE ,URINE NEGATIVE (NEGATIVE); NITRATE,URINE NEGATIVE (NEGATIVE); OCCULT BLOOD,URINE NEGATIVE (NEGATIVE); PH,URINE 6.5 (5.0-8.0); PROTEIN,URINE NEGATIVE (NEGATIVE); UROBILINOGEN,URINE <=1.0 mg/dL (<=1.0)
[2024-08-06 21:55] VITALS: BP 136/70; PULSE 88; RESP 20; O2SAT 98
[2024-08-06] MEDS ORDERED: ONDA-104 PO (22:03)
== END 2024-08-06 22:24 | disposition home or self-care (01) ==
LOC: EMS 17:56
DX: R19.7 Diarrhea, unspecified (principal); R11.2 Nausea with vomiting, unspecified; R35.0 Frequency of micturition; R05.9 Cough, unspecified; E11.9 Type 2 diabetes mellitus without complications; E78.00 Pure hypercholesterolemia, unspecified; I10 Essential (primary) hypertension; J45.909 Unspecified asthma, uncomplicated; K21.9 Gastro-esophageal reflux disease without esophagitis; M19.90 Unspecified osteoarthritis, unspecified site; Z20.822 Contact with and (suspected) exposure to COVID-19
CPT/HCPCS: 99285; 74177; 96374; 71045; 96361; 96375; 87426; 80048; 80076; 81003; 83690; 84484; 85025; 87804; 36415; 93005; Q9967; J3490; J2405; J7030; J7050

== ENCOUNTER 2024-08-25 17:31 | Emergency (ER) | payer MEDICARE, OTHER ==
[~2024-08-25] VITALS: Ht 157.5 cm; Wt 89.0 kg
[~2024-08-25 17:31] MED LIST changes: +ONDA-104 PO
[2024-08-25 17:47] VITALS: TEMP 99.9
[2024-08-25 19:02] LABS: BASOPHILS % (AUTO) 0.6 % (0.0-2.0); EOSINOPHILS % (AUTO) 0.8 % (1.0-6.0); HEMATOCRIT 34.8 % (36-46); HEMOGLOBIN 11.5 g/dL (12.0-16.0); LYMPHOCYTES # (AUTO) 1.8 K/uL (1.0-4.8); LYMPHOCYTES % (AUTO) 26.6 % (22.0-44.0); MEAN CORPUSCULAR HEMOGLOBIN 29.9 pg (26.0-34.0); MEAN CORPUSCULAR HGB CONC 33.1 G/dL (31.0-37.0); MEAN CORPUSCULAR VOLUME 90 fL (80-100); MONOCYTES # (AUTO) 0.5 K/uL (0.1-1.0); MONOCYTES % (AUTO) 6.6 % (2.0-9.0); NEUTROPHILS # (AUTO) 4.5 K/uL (1.8-7.7); NEUTROPHILS % (AUTO) 65.4 % (40.0-70.0); PLATELET COUNT (AUTO) 277 K/uL (150-450); RED BLOOD CELL COUNT(AUTO) 3.86 MIL/uL (4.00-5.20); RED CELL DISTRIBUTION WIDTH 15.9 % (11.5-14.5)
[2024-08-25 19:11] LABS: ANION GAP 11 mmol/L (8-16); CALCIUM, TOTAL 9.2 mg/dL (8.8-10.5); CARBON DIOXIDE 25 mmol/L (22-29); CHLORIDE 101 mmol/L (98-107); CREATININE 1.04 mg/dL (0.60-1.30); GLOMERULAR FILTR. RATE CALC > 60 mL/min (>60); GLUCOSE,RANDOM 187 mg/dL (70-110); POTASSIUM 3.7 mmol/L (3.5-5.1); SODIUM SERUM 137 mmol/L (136-145); UREA NITROGEN, BLOOD 17 mg/dL (7-18)
[2024-08-25] MEDS: TraMADol HCL 50 MG TABLET PO ONE (20:15)
[2024-08-25] MEDS: LIDOCAINE 5% TRANSDERMAL PATCH TD ONE (22:21)
[2024-08-25] MEDS ORDERED: LIDO700A15 TP (22:22)
[2024-08-25] MEDS ORDERED: CYCL-448 PO (22:22)
[2024-08-25] MEDS ORDERED: TRAM50TA5 PO (22:24)
[2024-08-25 22:35] VITALS: BP 130/69; PULSE 80; RESP 16; O2SAT 99
== END 2024-08-25 22:36 | disposition home or self-care (01) ==
LOC: EMS 17:31
DX: M54.2 Cervicalgia (principal); E11.9 Type 2 diabetes mellitus without complications; E78.00 Pure hypercholesterolemia, unspecified; I10 Essential (primary) hypertension; J45.909 Unspecified asthma, uncomplicated; K21.9 Gastro-esophageal reflux disease without esophagitis; M19.90 Unspecified osteoarthritis, unspecified site; Z79.82 Long term (current) use of aspirin; Z79.84 Long term (current) use of oral hypoglycemic drugs; Z79.899 Other long term (current) drug therapy
CPT/HCPCS: 72040; 80048; 85025; 99284

== ENCOUNTER 2024-11-15 10:46 | Emergency (ER) | payer MEDICARE, OTHER ==
[~2024-11-15] VITALS: Ht 152.4 cm; Wt 90.9 kg
[~2024-11-15 10:46] MED LIST changes: +CYCL-448 PO; +LIDO700A15 TP; +TRAM50TA5 PO
[2024-11-15 11:23] VITALS: TEMP 98
[2024-11-15] MEDS ORDERED: CEPH-558 PO (14:57)
[2024-11-15] MEDS ORDERED: SULF-261 PO (14:57)
[2024-11-15] MEDS: SULFAMETHOX/TRIMETH DS 800-160 MG/TABLET PO ONE (15:17)
[2024-11-15] MEDS: CLOTRIMAZOLE 1% 15 GM CREAM TP ONE (15:17)
[2024-11-15] MEDS: CEPHALEXIN MONOHYDRATE 500 MG CAPSULE PO ONE (15:17)
[2024-11-15] MEDS: ALBUTEROL SULFATE HFA 90 MCG/PUFF 8 GM INHALER IH ONE (15:18)
[2024-11-15 15:23] VITALS: BP 160/85; PULSE 60; RESP 16; O2SAT 98
== END 2024-11-15 15:28 | disposition home or self-care (01) ==
LOC: EMS 10:48
DX: B35.9 Dermatophytosis, unspecified (principal); J45.909 Unspecified asthma, uncomplicated; E11.9 Type 2 diabetes mellitus without complications; E78.00 Pure hypercholesterolemia, unspecified; I10 Essential (primary) hypertension; K21.9 Gastro-esophageal reflux disease without esophagitis; Z79.84 Long term (current) use of oral hypoglycemic drugs; Z79.899 Other long term (current) drug therapy
CPT/HCPCS: 99284; 94640; 82962; J3535

== ENCOUNTER 2025-05-14 20:20 | Emergency (ER) | payer MEDICARE, OTHER ==
[~2025-05-14] VITALS: Ht 157.5 cm; Wt 89.5 kg
[~2025-05-14 20:20] MED LIST changes: -ACET-2080 PO; -ASPI-1444 PO; -ATOR40TA71 PO; -BENZ-227 PO; +CEPH-558 PO; -CYCL-448 PO; -IBUP-1554 PO; -LIDO700A15 TP; -MOXI3DRO25 OD; -ONDA-104 PO; +SULF-261 PO; -TRAM50TA5 PO
[2025-05-14 20:27] VITALS: TEMP 98.1
[2025-05-14 21:02] LABS: COVID AG,FIA SOURCE NASAL SWAB
[2025-05-14 21:08] LABS: PLATELET COUNT (AUTO) 293 K/uL (150-450); RED BLOOD CELL COUNT(AUTO) 4.01 MIL/uL (4.00-5.20); RED CELL DISTRIBUTION WIDTH 15.3 % (11.5-14.5); WHITE BLOOD COUNT (AUTO) 6.4 K/uL (4.5-11.0)
[2025-05-14 21:17] LABS: CALCIUM, TOTAL 9.1 mg/dL (8.8-10.5); CREATININE 1.18 mg/dL (0.60-1.30); GLOMERULAR FILTR. RATE CALC 54.0 mL/min (>60); GLUCOSE,RANDOM 203.0 mg/dL (70-110); SODIUM SERUM 137.0 mmol/L (136-145); UREA NITROGEN, BLOOD 21.0 mg/dL (7-18)
[2025-05-14 21:18] LABS: ERYTHROCYTE SEDIMENTATION RATE 72 MM/HR (0-30)
[2025-05-14 21:21] LABS: INFLUENZA TYPE A NEGATIVE FOR TYPE A (NEGATIVE); INFLUENZA TYPE B NEGATIVE FOR TYPE B (NEGATIVE); SARS-COV2 (COVID) ANTIGEN,FIA Negative (Negative)
[2025-05-15] MEDS: ACETAMINOPHEN/CODEINE 300-30 MG TABLET PO ONE (02:08)
[2025-05-15 02:11] LABS: TROPONIN I-HIGH SENSITIVITY 12 ng/L (<51)
[2025-05-15 02:17] LABS: APPEARANCE,URINE CLEAR (CLEAR); GLUCOSE, URINE (UA) NEGATIVE (NEGATIVE); LEUKOCYTE ESTERASE ,URINE SMALL (NEGATIVE); NITRATE,URINE NEGATIVE (NEGATIVE); OCCULT BLOOD,URINE NEGATIVE (NEGATIVE); SPECIFIC GRAVITIY, URINE 1.015 (1.003-1.030)
[2025-05-15] MEDS: SODIUM CHLORIDE 0.9% 1,000 ML IV ONE (03:39)
[2025-05-15] MEDS ORDERED: CEPH-558 PO (04:42)
[2025-05-15] MEDS ORDERED: HYDR12.54 PO (04:42)
[2025-05-15] MEDS: CefTRIAXone 1 GM/DEXTROSE 50 ML IV ONE (04:43)
[2025-05-15] MEDS: CEPHALEXIN MONOHYDRATE 500 MG CAPSULE PO ONE (04:43)
[2025-05-15 05:00] VITALS: BP 158/78; PULSE 66; RESP 18; O2SAT 96
== END 2025-05-15 05:17 | disposition home or self-care (01) ==
LOC: EMS 20:20
DX: N39.0 Urinary tract infection, site not specified (principal); I10 Essential (primary) hypertension; E11.9 Type 2 diabetes mellitus without complications; E78.00 Pure hypercholesterolemia, unspecified; M19.90 Unspecified osteoarthritis, unspecified site; K21.9 Gastro-esophageal reflux disease without esophagitis; J45.909 Unspecified asthma, uncomplicated; Z79.899 Other long term (current) drug therapy
CPT/HCPCS: 99285; 87426; 80048; 81001; 84484; 85025; 85610; 85651; 87804; 36415; 96365; 70450; 71045; 96361; 96375; 93005; J0696; J0360; J7030